=== PATIENT | female | born 1970 | race Caucasian/White ===

== ENCOUNTER 2018-06-11 09:29 | Emergency (ER) | payer OTHER ==
[2018-06-11 09:35] VITALS: BP 101/66; PULSE 59; TEMP 58; BMI 20.9
--- NOTE | 2018-06-11 10:09 | PDOC ---
History of Present Illness - General Chief Complaint: Urinary Problem Stated Complaint: URINARY PROBLEM Time Seen by Provider: 06/11/18 09:38 History Source: Patient - History of Present Illness Timing/Duration: reports: constant Quality: reports: burning Past History - Past Medical History Home Medications: Ambulatory Orders Nitrofurantoin Monohyd/M-Cryst [Macrobid -] 100 mg PO BID #14 capsule 06/11/18 COPD: No Thyroid Disease: No - Suicide/Smoking/Psychosocial Hx Smoking History: Never smoked Hx Alcohol Use: No Drug/Substance Use Hx: No Review of Systems - Review of Systems Constitutional: No: Chills, Fever ABD/GI: No: Nausea, Vomiting, Abdominal cramping : Yes: Burning, Dysuria. No: Discharge, Flank Pain, Hematuria *Physical Exam - Vital Signs Last Vital Signs Temp Pulse Resp BP Pulse Ox 58 F L 59 L 18 101/66 100 06/11/18 09:32 06/11/18 09:32 06/11/18 09:32 06/11/18 09:32 06/11/18 09:32 - Physical Exam General Appearance: Yes: Appropriately Dressed. No: Apparent Distress HEENT: positive: Normal Voice. negative: Scleral Icterus (R), Scleral Icterus ( L) Neck: positive: Supple Gastrointestinal/Abdominal: positive: Soft. negative: Tender Musculoskeletal: negative: CVA Tenderness Integumentary: positive: Dry, Warm Neurologic: positive: Fully Oriented, Alert, Normal Mood/Affect Moderate Sedation - Procedure Monitoring Vital Signs: Procedure Monitoring Vital Signs Temperature 58 F L 06/11/18 09:32 Pulse Rate 59 L 06/11/18 09:32 Respiratory Rate 18 06/11/18 09:32 Blood Pressure 101/66 06/11/18 09:32 O2 Sat by Pulse Oximetry (%) 100 06/11/18 09:32 Medical Decision Making - Medical Decision Making 06/11/18 10:04 47 yo F, no sig hx, s/p IUD, p/w burning upon urination w/ vaginal itching x 1 week. No hematuria, freq, vag discharge, abd pain, n/v/f/c. Sexually active w/ only. No h/o STDs See exam R/o uti -ua/cx Vaginal itching No discharge Pelvic exam 06/11/18 11:26 UA w/ trace LE, upreg neg. Will dc w/ abx given sxs. Vagisil OTC for itch relief pending STD/vaginitis panel sent *DC/Admit/Observation/Transfer Diagnosis at time of Disposition: Dysuria, Vaginal itching - Discharge Dispostion Disposition: HOME Condition at time of disposition: Good - Prescriptions Prescriptions: Nitrofurantoin Monohyd/M-Cryst [Macrobid -] 100 mg PO BID #14 capsule - Referrals Referrals: Kylie Abdi MD [Primary Care Provider] - - Patient Instructions Printed Discharge Instructions: Urinary Tract Infection Additional Instructions: You were started on antibiotics for possible urine infection You can use a cream for vaginal itching called vagisil that is available over the counter We sent other tests such as urine culture and STD testing and will call you in 2 -3 days with any positive results. You can also call us in 203 days at [phone] during hours of 8am to 11pm - Post Discharge Activity
[2018-06-11 10:34] LABS: HCG,QUALITATIVE URINE Negative
[2018-06-11 10:37] LABS: URINE APPEARANCE CLEAR; URINE BILIRUBIN NEGATIVE (<2.0 mg/dL); URINE COLOR STRAW; URINE GLUCOSE (UA) NEGATIVE (NEGATIVE); URINE KETONE NEGATIVE (NEGATIVE); URINE LEUK ESTERASE TRACE (NEGATIVE); URINE NITRITE NEGATIVE (NEGATIVE); URINE PROTEIN NEGATIVE (NEGATIVE); URINE UROBILINOGEN NEGATIVE mg/dL (0.2-1.0)
[2018-06-11 10:38] LABS: EPI CELLS RARE /HPF (FEW)
== END 2018-06-11 11:28 | disposition home or self-care (01) ==
LOC: JERFT 09:29
DX: R30.0 Dysuria (principal); N89.8 Other specified noninflammatory disorders of vagina; L29.9 Pruritus, unspecified
CPT/HCPCS: 36415; 81003; 81015; 84703; 87070; 87086; 87205; 87491; 87591; 99281-25

== ENCOUNTER 2021-04-21 09:47 | Emergency (ER) | payer OTHER ==
[2021-04-21 09:59] VITALS: BP 103/66; PULSE 79; TEMP 98.5; BMI 26.9
== END 2021-04-21 11:34 | disposition home or self-care (01) ==
LOC: JERFT 09:47
DX: M25.572 Pain in left ankle and joints of left foot (principal)
CPT/HCPCS: 73610-TC-LT-FY; 73630-TC-LT; 99283-25